=== PATIENT | female | born 1995 | race Caucasian/White ===

== ENCOUNTER 2019-01-18 18:03 | Emergency (ER) | payer SELFPAY ==
[2019-01-18 18:15] VITALS: BP 119/84
--- NOTE | 2019-01-18 18:31 | UC ---
FLU HPI - HPI Summary HPI Summary: Patient is a 23yo female presenting with complaint of dry cough and SOB x10 days. Notes SOB with exertion. Patient states she felt feverish two days ago with body aches but that those symptoms have resolved. Notes cough worse at night. Denies wheezing but states at night it "feels like rattling." Denies fever and chills today. Denies n/v/d and abd pain. Denies URI symptoms. Has taken otc cough syrup with some relief. Denies h/o asthma, allergies, and other lung issues. - History of Current Complaint Chief Complaint: UCRespiratory Stated Complaint: COUGH, ACHES, CHILLS Hx Obtained From: Patient Hx Last Menstrual Period: 2 wks ago Onset/Duration: Gradual Onset, Lasting Days Severity Initially: Moderate Pain Intensity: 5 Pain Scale Used: 0-10 Numeric - Allergy/Home Medications Allergies/Adverse Reactions: Allergies Allergy/AdvReac Type Severity Reaction Status Date / Time azithromycin Allergy Hives Verified 01/18/19 18:15 erythromycin base Allergy Hives Verified 01/18/19 18:15 PMH/Surg Hx/FS Hx/Imm Hx Previously Healthy: Yes - Surgical History Surgical History: None - Family History Known Family History: Positive: Unknown, Non-Contributory - Social History Occupation: Employed Full-time Alcohol Use: Occasionally Substance Use Type: None Smoking Status (MU): Never Smoked Tobacco Review of Systems All Other Systems Reviewed And Are Negative: Yes Constitutional: Negative: Fever, Chills, Fatigue ENT: Negative: Sore Throat, Ear Ache, Nasal Discharge, Sinus Congestion, Sinus Pain/Tenderness Respiratory: Positive: Shortness Of Breath - on exertion, Cough - dry, Other - rattling feeling in chest at night Cardiovascular: Positive: Negative Gastrointestinal: Positive: Negative Musculoskeletal: Positive: Negative Neurological: Positive: Negative Physical Exam Triage Information Reviewed: Yes Appearance: Well-Appearing, No Pain Distress, Well-Nourished Vital Signs: Initial Vital Signs Temp 97.6 F 01/18/19 18:12 Pulse 102 01/18/19 18:12 Resp 18 01/18/19 18:12 BP 119/84 01/18/19 18:12 Pulse Ox 99 01/18/19 18:12 Vital Signs Reviewed: Yes Eyes: Positive: Conjunctiva Clear ENT: Positive: Hearing grossly normal Neck exam: Normal Neck: Positive: Supple, Nontender, No Lymphadenopathy Respiratory Exam: Normal Respiratory: Positive: Lungs clear, Normal breath sounds, No respiratory distress, No accessory muscle use. Negative: Crackles, Rhonchi, Stridor, Wheezing, Plerual rub Cardiovascular Exam: Normal Cardiovascular: Positive: RRR Neurological: Positive: Alert Psychological: Positive: Age Appropriate Behavior Flu Course/Dx - Course Course Of Treatment: Patient VS normal including 99% O2 sat. Lungs sounds clear. No respiratory distress. I treated patient with tessalon perles and albuterol inhaler. Instructed to continue with symptomatic treatment and follow [facility] or physician referral if symptoms persist or worsen. Patient voiced understanding and agreed with treatment plan. - Differential Dx/Diagnosis Provider Diagnosis: Acute bronchitis Discharge ED - Sign-Out/Discharge Documenting (check all that apply): Patient Departure All imaging exams completed and their final reports reviewed: No Studies - Discharge Plan Condition: Stable Disposition: HOME Prescriptions: Albuterol HFA INHALER* [Ventolin HFA Inhaler*] 1 - 2 puff INH Q6H PRN #1 mdi PRN Reason: Sob/Wheezing Benzonatate CAP* [Tessalon 100 MG CAP*] 100 mg PO TID PRN #21 cap PRN Reason: Cough Patient Education Materials: Acute Bronchitis (ED), How to Use a Metered-Dose Inhaler (ED) Referrals: [facility] [Outside] - If Needed [facility] [place] [facility] REFERRAL [Outside] - If Needed Additional Instructions: As discussed, your symptoms are most likely caused by a virus. Use the inhaler as needed for your shortness of breath and wheezing. You may take the tessalon perles as prescribed to help alleviate coughing. You may take ibuprofen and/or tylenol as directed for pain and fever relief. A humidifier at night or hot steam from the shower may help relieve symptoms as well. Get plenty of rest and fluids. Follow up with the [facility] or Physician Referral listed below if your symptoms worsen or do not resolve within 7-10 days. - Billing Disposition and Condition Condition: STABLE Disposition: Home
== END 2019-01-18 19:05 | disposition home or self-care (01) ==
LOC: UCEAST 18:03
DX: J20.9 Acute bronchitis, unspecified (principal); Z88.1 Allergy status to other antibiotic agents
CPT/HCPCS: 99202; G0463